=== PATIENT | male | born 1985 | race Caucasian/White ===

== ENCOUNTER 2020-05-23 14:10 | Emergency (ER) | payer OTHER, SELFPAY ==
--- NOTE | 2020-05-23 14:18 | ED.WOUNDLAC ---
HPI - Wound/Laceration General Chief Complaint: Wound/Laceration Stated Complaint: finger lac Time Seen by Provider: 05/23/20 14:18 Source: patient Mode of arrival: ambulatory Limitations: no limitations History of Present Illness HPI narrative: Patient is a 34-year-old previously healthy male who presents for evaluation of laceration to the left second finger. Patient reports he was using a box cutting knife when the knife slipped and cut into his finger. He denies any numbness. He states there was some pretty considerable bleeding, thus he came here for wound evaluation. Patient denies any bone pain. Patient is not up-to-date on his tetanus. Related Data Home Medications Medication Instructions Recorded Confirmed No Home Medications 05/23/20 05/23/20 Allergies Allergy/AdvReac Type Severity Reaction Status Date / Time banana Allergy Swelling Verified 05/23/20 14:11 of Lip/Tongue/Throat Review of Systems Review of Systems: Narrative: CONSTITUTIONAL: No recent fever CARDIOVASCULAR: Denies chest pain RESPIRATORY: Denies cough GASTROINTESTINAL: Denies abdominal pain SKIN: Reports laceration to left second digit MUSCULOSKELETAL: Denies back pain NEUROLOGIC: Denies numbness PMFSH Past Medical History Medical History (Updated 05/23/20 @ 14:49 by Katie Loza MD) No pertinent past medical history Social History Social History (Updated 05/23/20 @ 14:46 by Katie Loza MD) Smoking status: Never smoker Alcohol intake: current Alcohol use details: Social Substance use: never Living arrangements: with family Gender identity (if verbalized by the patient): Male Exam Narrative: Exam Narrative: GENERAL: Awake, alert, conversant HEAD: Normocephalic, atraumatic. EYES: PERRLA and EOMI. ENT: Nares clear, no rhinorrhea or epistaxis. Mucous membranes moist. NECK: Supple. CHEST: No respiratory distress, breathing even and non labored HEART: Regular rate, sinus rhythm ABDOMEN:Non distended, non tender EXTREMITIES: Normal range of motion. No edema. 1 cm superficial, linear laceration to the middle phalanx of the left second digit. Venous bleeding present. Capillary refill less than 3 seconds. Radial pulses 2+. Intact sensation median, ulnar, radial nerve distribution. No pain with palpation of the metacarpals, PIP or DIP. No evidence of foreign body. No bony deformity. SKIN: Warm, dry, no rash. NEURO:No focal deficits. Alert and oriented x3 Procedures Laceration Laceration 1: Date: 05/23/20 Time: 14:47 Site: hand Side (If applicable): left Size (cm): 1 Description: linear Depth: simple, single layer Local Anesthetic: lidocaine 1% Amount of anesthesia used (mL): 3 Pre-repair: wound explored, irrigated and irrigated extensively ====== Skin Level ====== Skin layer closed with: prolene Size (cm): 5-0 Number of sutures: 5 Technique: simple, interrupted ====== Subcutaneous Layer ====== ====== Muscle Layer ====== ====== Tendon Layer ====== Dressing: Dressing applied, bleeding controlled MDM - Wound/Laceration MDM Narrative Medical decision making narrative: Patient presents for evaluation of left second finger laceration. No sign of foreign body. No deformity or sign of osseous injury. No pain with palpation of the joint spaces. Given superficial nature of this wound and after irrigation I did not see any bony involvement. Patient with intact flexion and extension. Capillary refill is intact. There is good perfusion to the finger. Wound was repaired. Patient was given symptomatic wound care and advised to have sutures removed in 10 days. Patient given return precautions for infection and discharged home in stable condition. Patient's tetanus was updated in the ER. Differential Diagnosis Differential diagnosis: Likely laceration, abrasion and avulsion o
[2020-05-23] MEDS: TETANUS,DIPHTHERIA,AC PERTUSSIS ADULT (0.5 ML) BOOSTRIX IM (14:52)
[2020-05-23 15:02] VITALS: PULSE 72; RESP 20; O2SAT 100
== END 2020-05-23 15:04 | disposition home or self-care (01) ==
PROVIDERS: Emergency Provider Emergency Medicine
DX: S61.211A Laceration without foreign body of left index finger without damage to nail, initial encounter (principal); W26.0XXA Contact with knife, initial encounter; Z23 Encounter for immunization
CPT/HCPCS: 12001; 90471; 90715; 99283